=== PATIENT | female | born 1975 | race Caucasian/White ===

== ENCOUNTER 2019-07-30 17:26 | Emergency (ER) | payer BC, OTHER ==
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
[2019-07-30 19:40] VITALS: BP 134/67
== END 2019-07-30 19:40 | disposition home or self-care (01) ==
LOC: ED 17:26
DX: M25.561 Pain in right knee (principal); Z98.84 Bariatric surgery status
CPT/HCPCS: 99281